=== PATIENT | male | born 1960 ===

== ENCOUNTER 2019-07-31 12:38 | Emergency (ER) | payer BC, SELFPAY ==
[2019-07-31 12:39] VITALS: BP 125/70; PULSE 90; RESP 18; TEMP 36.2; O2SAT 97; BMI 26.2
--- NOTE | 2019-07-31 12:39 | ED_ITS ---
Entered by Mona Marcus, acting as scribe for HPI - Trauma General: Chief Complaint: Trauma Stated Complaint: IMPALED WITH ANTLER TO BACK Time Seen by Provider: 07/31/19 12:38 History of Present Illness: HPI narrative: 59 yo male presents with an antler impaled in his back. Pt states that he was painting, stepped back and fell backwards on the antler. Pt states that he ate this morning. Pt denies being short of breath. MD complaint: fall and injury (back) Onset (ago): hour(s) Location: back Severity: moderate Context: fall Associated symptoms: Reports back pain; Denies abdominal pain, chills, diaphoresis, fever(s), headache(s), nausea, syncope or vomiting Review of Systems Const: Denies: fever, chills, body aches, change in appetite, change in weight, malaise, night sweats, diaphoresis or change in sleep pattern Eyes: Denies: change in vision, blurry vision, blind spots, photophobia, eye discomfort, eye discharge or eye redness ENMT: Denies: throat pain, uvular edema, enlarged tonsils, painful swallowing, mouth pain, swelling of lips/tongue or oral sores/lesions Card: Denies: lightheadedness, syncope, pre-syncope or shortness of breath on exertion Resp: Denies: shortness of breath or coughing up blood GI: Denies: abdominal pain, nausea, vomiting, vomiting blood, coffee grounds in vomit, difficulty swallowing, heartburn/indigestion or feeling full early : Reports: flank pain; Denies: difficulty urinating Musc: Reports: back pain Skin/Breast: Reports: skin pain; Denies: rash, itching, redness or sensitivity to light Neuro: Denies: headache, numbness in extremities, weakness in extremities, lack of coordination or difficulty walking Psych: Denies: sleeping more, hopelessness, loss of interest, difficulty concentrating or tactile hallucinations PFSH ED PFSH: Statuses (acute, chronic, etc) shown below reflect problem list status as previously entered and may not be historically accurate Medical History Diabetes (Acute) Social History Smoking and tobacco status: never smoked Physical Exam Const: COMMON NORMALS: oriented x3 and alert GENERAL APPEARANCE: c ooperative ORIENTATION/CONSCIOUSNESS: Yes oriented to person, Yes oriented to place and Yes oriented to time HENMT: THROAT: no uvular edema Eye: COMMON NORMALS: PERRL GENERAL EYE: normal appearance of both eyes PUPIL: Yes PERRL Back/Pelvis: COCCYX: tenderness Extremity: GENERAL: Yes normal exam except as noted Neuro: COMMON NORMALS: oriented x3 SENSORIUM/ORIENTATION: Yes alert, Yes oriented to person, Yes oriented to place and Yes oriented to time Skin: COMMON NORMALS: negative for no wounds NARRATIVE SKIN EXAM: Right side approximately T 10-12 extends a elk horn that has been cut, there is palpable horn that extends superficially to about the T 10 area, ther is no bleeding from the site and no sign of hematoma formation. GENERAL SKIN EXAM: no ecchymo and no erythema TRAUMA: puncture MDM - Trauma Lab Data: Labs: Lab Results 07/31/19 07/31/19 07/31/19 Range/Units 12:57 12:57 12:57 WBC 14.2 H (4.0-10.0) 10^3/ uL RBC 4.75 (4.1-5.3) 10^6/u L Hgb 12.9 (11.7-16.6) g/dL Hct 40.4 L (42.0-52.0) % MCV 85.1 (80-94) fL MCH 27.2 L (28.0-34.0) pg MCHC 31.9 (30.0-36.0) g/dL RDW 13.3 (12.1-15.1) % Plt Count 326 (130-400) 10^3/c mm MPV 8.6 (7.4-10.4) fL Neut % (Auto) 78.4 % Lymph % (Auto) 13.0 % [place] % (Auto) 6.1 % Eos % (Auto) 1.3 % Baso % (Auto) 0.4 % Neut # (Auto) 11.1 H (1.8-7.7) 10^3/u L Lymph # (Auto) 1.9 (0.8-4.8) 10^3/u L [place] # (Auto) 0.9 (0.2-0.9) 10^3/u L Eos # (Auto) 0.2 (0.0-0.8) 10^3/u L Baso # (Auto) 0.1 (0.0-0.1) 10^3/u L Nucleated RBC % (a uto) 0 % Nucleated RBCs # 0.0 /100WBC PT 13.50 H (10.5-13.3) SECO NDS INR 1.00 (0.8-1.2) APTT 29.5 (23.9-36.7) SECO NDS Sodium 141 (136-145) mmol/L Potassium 4.6 (3.5-5.1) mmol/L Chloride 104 (98-107) mmol/L Carbon Dioxide 26 (22-29) mmol/L Anion Gap 15.6 (5-19) BUN 19 (6-20) mg/dL Creatinine 1.1 (0.7-1.2) mg/dL GFR Calculation 68.5 L (90-130) mL/min Glucose 98 (65-115) mg/dL Calcium 9.0 (8.5-10.5) mg/dL Total Bilirubin 0.2 (0.15-1.2) mg/dL AST 23 (0-40) U/L ALT 25 (0-41) U/L Alkaline Phosphata se 64 (40-130) IU/L Total Protein 6.1 L (6.6-8.7) g/dL Albumin 3.6 (3.5-5.2) g/dL Globulin 2.5 (1.3-4.6) g/dL Discharge Plan Discharge Patient Disposition: Short Term Hosp w Plan Readm Clinical Impression: Foreign body entering through skin Qualifiers: Encounter type: initial encounter Qualified Code(s): W45.8XXA - Other foreign body or object entering through skin, initial encounter Penetrating abdominal trauma Qualifiers: Encounter type: initial encounter Qualified Code(s): S31.109A - Unspecified open wound of abdominal wall, unspecified quadrant without penetration into peritoneal cavity, initial encounter Condition: Stable Activity Restrictions/Additional Instructions: Patient transferred to [facility] ER, Dr Rankin accepting for evaluation of traumatic penetration of elk horn in back Coding Level of Care Code ED License Issuer for Aarti Fwdamir Exam Problem Focused The documentation recorded by the Amrit barry Kialy, accurately reflects the service I personally performed and the decisions made by me, Tangela Riley, DO
[2019-07-31] MEDS: cefTRIAXone 1,000 MG in sodium chloride 0.9% (plus) 50 ML 100 MG IV (12:57)
[2019-07-31] MEDS: tetanus-dipt-pertussis 0.5 mL SDV IM (12:58)
[2019-07-31] MEDS: fentaNYL 50 mcg/mL INJ 2mL 80.7 MCG IVP (12:58)
[2019-07-31 13:03] LABS: Basophils # 0.1 10^3/uL (0.0-0.1); Basophils % 0.4 %; Eosinophils # 0.2 10^3/uL (0.0-0.8); Eosinophils % 1.3 %; Hematocrit 40.4 % (42.0-52.0); Hemoglobin 12.9 g/dL (11.7-16.6); Lymphocytes # 1.9 10^3/uL (0.8-4.8); Mean Corpuscular HGB Conc 31.9 g/dL (30.0-36.0); Mean Corpuscular Hemoglobin 27.2 pg (28.0-34.0); Mean Corpuscular Volume 85.1 fL (80-94); Mean Platelet Volume 8.6 fL (7.4-10.4); Monocytes # 0.9 10^3/uL (0.2-0.9); Monocytes % 6.1 %; Neutrophils # 11.1 10^3/uL (1.8-7.7); Neutrophils % 78.4 %; Nucleated Red Blood Cells % 0 %; Platelet Count 326 10^3/cmm (130-400); Red Blood Count 4.75 10^6/uL (4.1-5.3); Red Cell Distribution Width 13.3 % (12.1-15.1); White Blood Count 14.2 10^3/uL (4.0-10.0)
[2019-07-31 13:15] VITALS: BP 125/70; PULSE 75; RESP 18; O2SAT 98
[2019-07-31 13:17] LABS: Partial Thromboplastin Time 29.5 SECONDS (23.9-36.7)
[2019-07-31 13:20] LABS: Alanine Aminotransferase 25 U/L (0-41); Albumin Level 3.6 g/dL (3.5-5.2); Alkaline Phosphatase 64 IU/L (40-130); Anion Gap 15.6 (5-19); Aspartate Amino Transferase 23 U/L (0-40); Blood Urea Nitrogen 19 mg/dL (6-20); Carbon Dioxide 26 mmol/L (22-29); Chloride 104 mmol/L (98-107); Globulin 2.5 g/dL (1.3-4.6); Glomerular Filtration Rate 68.5 mL/min (90-130); Glucose 98 mg/dL (65-115); Potassium 4.6 mmol/L (3.5-5.1); Sodium 141 mmol/L (136-145); Total Bilirubin 0.2 mg/dL (0.15-1.2); Total Protein 6.1 g/dL (6.6-8.7)
[2019-07-31] MEDS: morphine 4 mg/mL SDV 1 mL IVP (13:30)
[2019-07-31] MEDS: ondansetron 2 mg/ML SDV 2 mL 4 MG IVP (13:30)
== END 2019-07-31 13:42 | disposition short-term general hospital, planned readmission (82) ==
LOC: ER 13:44
PROVIDERS: Emergency Provider Emergency Medicine Emergency Medical Services; PCP Nurse Practitioner Family
DX: S31.149A Puncture wound of abdominal wall with foreign body, unspecified quadrant without penetration into peritoneal cavity, initial encounter (principal); W26.8XXA Contact with other sharp object(s), not elsewhere classified, initial encounter; E11.9 Type 2 diabetes mellitus without complications; Z23 Encounter for immunization
CPT/HCPCS: 36415; 80053; 85025; 85610; 85730; 90471; 90715; 96360; 96365; 96375; 99282; 99283; J0696; J2270; J2405; J3010